=== PATIENT | female | born 1960 | race African-American/Black ===

== ENCOUNTER 2018-03-26 10:34 | Emergency (ER) | payer MEDICARE, OTHER ==
[~2018-03-26] VITALS: Ht 167.6 cm; Wt 129.3 kg
--- NOTE | 2018-03-26 11:00 | PHYS DOC ---
Past History Past Medical History: Hypothyroid, Hypotension Adult General [facility] HPI Patient is a 58 year old F who presents with hives that started today. She has no other symptoms at this time. She denies breathing difficulty She was seen by her primary care doctor and started on colchicine to treat gout. She was also started on Keflex that same time. This was approximately week ago. The colchicine course is completed however Keflex has several more days left She has no other new medications. She has no other associated symptoms at this time. She has no exacerbating or alleviating factors. Review of Systems Review of Systems Constitutional: Denies fever or chills [] Eyes: Denies change in visual acuity, redness, or eye pain [] HENT: Denies nasal congestion or sore throat [] Respiratory: Denies cough or shortness of breath [] Cardiovascular: No additional information not addressed in HPI [] GI: Denies abdominal pain, nausea, vomiting, bloody stools or diarrhea [] : Denies dysuria or hematuria [] Musculoskeletal: Denies back pain or joint pain [] Integument: Negative except history of present illness Neurologic: Denies headache, focal weakness or sensory changes [] Endocrine: Denies polyuria or polydipsia [] All other systems were reviewed and found to be within normal limits, except as documented in this note. Family History Family History No pertinent family medical history was reported Current Medications Current Medications Current medications were reviewed Allergies Allergies Allergies were reviewed Physical Exam Physical Exam Constitutional: Well developed, well nourished, no acute distress, non-toxic appearance. [] HENT: Normocephalic, atraumatic, bilateral external ears normal, oropharynx moist, no oral exudates, nose normal. [] Eyes: PERRLA, EOMI, conjunctiva normal, no discharge. [] Neck: Normal range of motion, no tenderness, supple, no stridor. [] Cardiovascular:Heart rate regular rhythm, no murmur [] Lungs & Thorax: Bilateral breath sounds clear to auscultation [] Abdomen: Bowel sounds normal, soft, no tenderness, no masses, no pulsatile masses. [] Skin: Raised macular rash on the trunk predominantly. Extremities: No tenderness, no cyanosis, no clubbing, ROM intact, no edema. [] Neurologic: Alert and oriented X 3, normal motor function, normal sensory function, no focal deficits noted. [] Psychologic: Affect normal, judgement normal, mood normal. [] Current Patient Data Vital Signs Vital Signs Date Time Temp Pulse Resp B/P (MAP) Pulse Ox O2 Delivery O2 Flow Rate FiO2 03/26/18 10:58 98.1 100 24 98 Room Air EKG EKG [] Radiology/Procedures Radiology/Procedures [] Course & Med Decision Making Course & Med Decision Making Pertinent Labs and Imaging studies reviewed. (See chart for details) [] Dragon Disclaimer Dragon Disclaimer This electronic medical record was generated, in whole or in part, using a voice recognition dictation system. Departure Departure: Impression: Primary Impression: Hives Disposition: HOME, SELF-CARE Condition: STABLE Referrals: STEVE SPENCER (PCP) Patient Instructions: Hives Additional Instructions: Anel was seen in the emergency department for skin rash. No emergency medical condition was found on history or physical exam. Her symptoms are most consistent with hives. She is encouraged to discontinue her antibiotic. She is given a prescription for topical steroids to be used as needed for symptom management. She was also found to have swelling in her legs and was advised to use YARELI hose regularly. She is encouraged to return to the emergency room if she develops new or worsening symptoms. She is also advised follow-up with her primary care doctor as needed for further management. Scripts Triamcinolone Acetonide (TRIAMCINOLONE ACETONIDE) 15 Gm Cream..g. 1 PRIMO TP BID, #15 GM 1 Refill Prov: IAN TUCKER MD 03/26/18 IAN TUCKER MD Mar 26, 2018 11:00
[2018-03-26] MEDS ORDERED: TRIA15CR50 TP (11:22)
[2018-03-26 11:37] VITALS: BP 120/92
[2018-03-26] MEDS ORDERED: CERTIRIZINE (11:48)
[2018-03-26] MEDS ORDERED: FURO-69 PO (11:48)
== END 2018-03-26 11:33 | disposition home or self-care (01) ==
LOC: ER 10:34
DX: L50.9 Urticaria, unspecified (principal); E03.9 Hypothyroidism, unspecified
CPT/HCPCS: 99283